=== PATIENT | female | born 1945 | race Caucasian/White ===

== ENCOUNTER 2017-11-28 21:23 | Emergency (ER) | payer MEDICARE, OTHER ==
[~2017-11-28] VITALS: Ht 162.6 cm; Wt 79.4 kg
[2017-11-28 21:45] VITALS: BP 144/100
--- NOTE | 2017-11-28 22:10 | Emergency Room Report ---
History of Present Illness General Chief Complaint: Nosebleed Source: Patient, EMS Present Illness HPI This is a 72-year-old female with no significant past medical history. She presents with chief complaint of a nosebleed on the left side of started around 4:00. Spontaneously. No trauma. No no streaking. No recent cold symptoms. It was on off and took tonight when it was more steady. No other complaint. Took aspirin 3 days ago. Patient History Past Medical History: see triage record, old chart reviewed Past Surgical History: other Pertinent Family History: none Social History: Denies: smoking Now: No Immunizations: other Reviewed Nursing Documentation: PMH: Agreed, PSxH: Agreed Nursing Documentation-PMH Past Medical History: No History, Except For Hx Cardiac Problems: No - Tachycardia Review of Systems Eye: Denies: eye pain, blurred vision ENT: Denies: ear pain, nose congestion, throat swelling Respiratory: Denies: cough, shortness of breath Cardiovascular: Denies: chest pain, palpitations Gastrointestinal: Denies: abdominal pain, diarrhea, nausea, vomiting Musculoskeletal: Denies: back pain, joint pain Skin: Denies: rash Neurological: Denies: headache, numbness Endocrine: Denies: increased thirst, increased urine Hematologic/Lymphatic: Denies: easy bruising All Other Systems: negative except mentioned in HPI Physical Exam Vital Signs Date Time Temp Pulse Resp B/P (MAP) Pulse Ox O2 Delivery O2 Flow Rate FiO2 11/28/17 21:24 98.1 98 16 144/100 98 Room Air vitals unremarkable Sp02 EP Interpretation: reviewed, normal General Appearance: well appearing, no apparent distress, alert Head: normocephalic, atraumatic Eyes: bilateral eye PERRL, bilateral eye EOMI ENT: hearing grossly normal, normal pharynx, other - Left naris with clots. After I asked her to blow out the clots, there is steady flow anteriorly and superiorly. No posterior bleeding. Neck: full range of motion, supple, no meningismus Respiratory: chest non-tender, lungs clear, normal breath sounds Cardiovascular #1: regular rate, rhythm, no murmur Gastrointestinal: normal bowel sounds, non tender, no mass, no organomegaly, no bruit, non-distended Musculoskeletal: back normal, gait/station normal, normal range of motion Psychiatric: mood/affect normal Skin: warm/dry Procedures Additional Procedure Procedure Narrative Procedure: Epistaxis control Indication: Epistaxis Description: I placed a 4.5 cm Rhino Rocket in the left naris. There was inflated. Bleeding stopped. After 30 minutes no active bleeding. Patient felt better. Patient tolerated procedure without any difficulty. No complication. Medical Decision Making Diagnostic Impression: Primary Impression: Epistaxis ER Course Patient presents with anterior epistaxis. Controlled now. We'll discharge home. Last Vital Signs Date Time Temp Pulse Resp B/P (MAP) Pulse Ox O2 Delivery O2 Flow Rate FiO2 11/28/17 21:24 98.1 98 16 144/100 98 Room Air Status: improved Disposition: HOME, SELF-CARE Condition: Stable Patient Instructions: Nosebleed, [id number] Additional Instructions: Did not take aspirin for a week. Followup with your Dr. in 2-5 days. Packing removed in 3-5 days. Return if worse. OPAL MARX M.D. Nov 28, 2017 22:10
[2017-11-28 22:14] VITALS: BP 144/100
== END 2017-11-28 22:43 | disposition home or self-care (01) ==
LOC: EDBD 21:23 → EMR 21:35
DX: R04.0 Epistaxis (principal)
CPT/HCPCS: 30901; 99283